=== PATIENT | female | born 1965 | race Caucasian/White ===

== ENCOUNTER 2017-11-12 07:00 | Day surgery (SDC) | payer OTHER ==
[2017-11-04 17:41] VITALS: BMI 29.0
[2017-11-12] MEDS ORDERED: HALOPERIDOL LACTATE 5 MG/ML ONE (07:46)
[2017-11-12] MEDS ORDERED: LIDOCAINE HCL 1%, 10 MG/ML (20ML VIAL) ONE ×2 (07:46→08:31)
[2017-11-12] MEDS ORDERED: EPINEPHrine/PF 1 MG/1 ML (1:1,000) AMPULE ONE ×3 (07:47→08:31)
[2017-11-12] MEDS ORDERED: MIDAZOLAM HCL 2 MG/2 ML SINGLE DOSE VIAL ONE (07:47)
[2017-11-12] MEDS ORDERED: SCOPOLAMINE HYDROBROMIDE 1 PATCH PATCH.TD72 ONE (07:47)
[2017-11-12] MEDS ORDERED: PROPOFOL 20 ML ONE ×9 (07:58→09:39)
[2017-11-12] MEDS ORDERED: fentaNYL CITRATE 250 MCG/5 ML VIAL ONE (07:58)
[2017-11-12] MEDS ORDERED: SUCCINYLCHOLINE CHLORIDE 200 MG/10 ML VIAL ONE (07:58)
[2017-11-12] MEDS ORDERED: FAMOTIDINE 20 MG/50 ML IVPB 20 MG/50 ML MG IVPB ONE (08:02)
[2017-11-12] MEDS ORDERED: ceFAZolin SODIUM 1 GM VIAL ONE (08:52)
[2017-11-12] MEDS ORDERED: DEXAMETHASONE SOD PHOSPHATE 4 MG/1 ML VIAL ONE (08:52)
[2017-11-12] MEDS ORDERED: ONDANSETRON 4 MG/2 ML VIAL ONE (08:52)
[2017-11-12] MEDS ORDERED: GUM MASTIC/STORAX/MSAL/ALCOHOL 1 DRP DROPSBTL MC ONE (09:51)
[2017-11-12] MEDS ORDERED: BACITRACIN 15 GM TUBE TOPICAL OINTMENT ONE (10:41)
[2017-11-12] MEDS ORDERED: PROMETHAZINE HCL 25 MG/1 ML VIAL IVPB PRN (10:59)
[2017-11-12] MEDS ORDERED: ONDANSETRON 4 MG/2 ML VIAL IVPUSH PRN (10:59)
[2017-11-12] MEDS ORDERED: oxyCODONE HCL 5 MG TABLET PO PRN ×2 (10:59)
[2017-11-12] MEDS ORDERED: oxyCODONE HCL 5 MG TABLET ONE (12:52)
[2017-11-12 13:52] VITALS: TEMP 98
[2017-11-12 14:01] VITALS: BP 132/84; PULSE 72
--- NOTE | 2017-11-13 13:39 | OP ---
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 PROCEDURES PERFORMED: Bilateral revision of reconstructed breasts, bilateral contouring of breast shape with subcutaneous fat grafting and left nipple reconstruction, bilateral capsulectomies and bilateral implant exchange. DRAINS: None. COMPLICATIONS: None. DESCRIPTION OF PROCEDURE: Patient was brought to the operating room, placed supine on the operating table. After establishing general endotracheal anesthesia, patient's abdomen and chest were prepped with topical chlorhexidine solution and draped with sterile drapes. This completed, an appropriate timeout was performed, identifying the patient and the nature of the procedure, allowing all operative participants to ask questions and to raise concerns as indicated. Once this was completed, a sterile surgical marking pen was used to refresh the preoperative outlines which once made, were measured for symmetry. A number 10 blade was used to incise along the inframammary folds, first on the left and then the right side, respectively, to excise the excess redundant skin at the medial most aspect of each inframammary fold for improved contouring. Once these revision incisions were made, the tissue was passed off the table as specimens marked "mastectomy scars". This completed, dissection with the Bovie cautery proceeded until the capsule was identified on both sides and then first on the right side, the intact implant was removed, as was the intact implant on the left. The difference in volumes was 800 mL and 700 mL right to left, respectively. Once this was completed, both pockets were washed out with sterile antibiotic irrigation. Using a lighted retractor, the capsulectomy was performed on both sides along the perimeter, excising both the capsule as well as previously placed dermal matrix which was folded on itself and redundant. Once the capsulectomy was completed, a temporary sizer was used to shape each pocket and a 50-mL difference was noted. Given this, two separate volume implants were chosen with Natrelle INSPIRA Soft Touch silicone gel implants used, on the left side with a 750-mL implant with a reference number of SSX-750 and on the right side a 700-mL implant with a reference number of SSX-700. Once this was completed, the layered closure was performed on both sides concomitantly with interrupted 2-0 Vicryl for the deep parenchymal layer, followed by interrupted 3-0 Monocryl for the deep dermal, and lastly, a running 4-0 Monocryl subcuticular suture was used. A C-V outline was drawn on the left nipple-areolar complex and incised with a number 15 blade. A 2- x 4-cm AlloDerm sheet, having been soaked, was then trimmed and folded on itself to make a prominent nipple point. The C-V outline was wrapped around this matrix and tacked to the deep parenchyma with interrupted 4-0 Monocryl suture. Then, 5-0 fast absorbing plain gut was used to close the cuticular layer around the nipple-areolar reconstruction. Once this was completed, two small access incisions were made on both flank areas with the [facility] fat harvesting system utilized with 500 mL of lipoaspirate removed from the flank, anterior abdominal and epigastric areas sequentially. These access incisions were then closed with 5-0 fast absorbing plain gut sutures. The fat was allowed to settle and separate and was transferred into 10-mL syringes. Using microdroplet injection in the superior pole of both sides, as well as the lateral anterior axillary line on the right breast, 120 mL were injected into the left breast and 100 mL into the right breast. The access contouring incisions were closed with 5-0 fast absorbing plain gut suture. Mastisol and Steri-Strips were then applied to the skin incisions that had been closed. dressings, ABD pads, and a surgical bra were then placed. Patient transferred to the postanesthesia care unit in stable condition. CANELO POTTS M.D. [id number]
--- NOTE | 2017-11-14 11:49 | PATH ---
Surgical Pathology Report Patient Name: MENA MORENO [facility]. Rec. #: [id number] /Age/Gender: 1965 (Age: 52) / F Account: [id number] Location[facility] Taken: 11/12/2017 Received: 11/12/2017 Reported: 11/14/2017 Physicians: Kevon Potts Specimen(s) Received A: LEFT BREAST TISSUE B: LEFT BREAST IMPLANT C: RIGHT BREAST IMPLANT D: RIGHT BREAST MASTECTOMY SCAR E: LEFT BREAST MASTECTOMY SCAR Clinical History None given Final Diagnosis A. SOFT TISSUE, LEFT BREAST, EXCISION: FIBROUS TISSUE CONSISTENT WITH BREAST IMPLANT CAPSULE. B. BATTERY STARTER, LEFT BREAST, REMOVAL: BREAST IMPLANT (GROSS ONLY). C. BATTERY STARTER, RIGHT BREAST, REMOVAL: BREAST IMPLANT (GROSS ONLY). D. SKIN, RIGHT BREAST, EXCISION: SKIN WITH DERMAL SCAR. E. SKIN, LEFT BREAST, EXCISION: SKIN WITH DERMAL SCAR. Electronically Signed Allen Rivas M.D. Gross Description A. Received in formalin labeled "left breast capsule," is an 11.5 x 7.0 x 0.2 cm portion of garner fibrous tissue, consistent with a breast capsule. No discrete masses are identified. Processing Assistant sections are submitted in one cassette. B. Received fresh labeled "left breast implant," is a 13 cm in diameter x 6.5 cm in depth clear, rubbery, intact breast implant. No soft tissue is present. No sections are submitted, gross only. C. Received fresh labeled "right breast implant," is a 13 cm in diameter x 6.5 cm in depth clear, rubbery, intact breast implant. No soft tissue is present. No sections are submitted, gross only. D. Received in formalin labeled "right breast mastectomy scar," is a 6.5 x 0.7 cm garner, elliptical, unoriented portion of skin excised to depth of 0.5 cm. The epidermal surface displays a possible well healed scar. No discrete masses are identified. Processing Assistant sections are submitted in one cassette. E. Received in formalin labeled "left breast mastectomy scar," is a 7.5 x 0.6 cm garner, elliptical, unoriented portion of skin excised to depth of 0.7 cm. The epidermal surface displays a well healed scar. No discrete masses are identified. Processing Assistant sections are submitted in one cassette. DL/11/13/2017 [facility]/13/2017
== END 2017-11-12 13:50 | disposition home or self-care (01) ==
LOC: FASU 07:00
PROVIDERS: ATTEND Surgery Plastic and Reconstructive Surgery
PROC: 0HRV0JZ Replacement of Bilateral Breast with Synthetic Substitute, Open Approach (ICD-10-PCS; 2017-11-12)
PROC: 0HRV07Z Replacement of Bilateral Breast with Autologous Tissue Substitute, Open Approach (ICD-10-PCS; 2017-11-12)
PROC: 0HUX07Z Supplement Left Nipple with Autologous Tissue Substitute, Open Approach (ICD-10-PCS; 2017-11-12)
PROC: 0HPU0JZ Removal of Synthetic Substitute from Left Breast, Open Approach (ICD-10-PCS; principal; 2017-11-12 08:26)
PROC: 0HPT0JZ Removal of Synthetic Substitute from Right Breast, Open Approach (ICD-10-PCS; 2017-11-12 08:26)
DX: M95.4 Acquired deformity of chest and rib (principal); Z90.13 Acquired absence of bilateral breasts and nipples; T85.44XA Capsular contracture of breast implant, initial encounter; Y82.8 Other medical devices associated with adverse incidents; Y92.9 Unspecified place or not applicable; N64.89 Other specified disorders of breast; N65.1 Disproportion of reconstructed breast
CPT/HCPCS: 88300-TC; 88304-TC; 94760

== ENCOUNTER 2018-02-19 11:55 | Day surgery (SDC) | payer OTHER ==
[2018-02-13 15:26] VITALS: BMI 29.7
[2018-02-19] MEDS ORDERED: GENTAMICIN SO4 80 MG/2 ML VIAL ONE (13:50)
[2018-02-19] MEDS ORDERED: ceFAZolin SODIUM 1 GM VIAL ONE ×2 (13:50→16:02)
[2018-02-19] MEDS ORDERED: BACITRACIN 15 GM TUBE TOPICAL OINTMENT ONE (14:16)
[2018-02-19] MEDS ORDERED: fentaNYL CITRATE 250 MCG/5 ML VIAL ONE (14:35)
[2018-02-19] MEDS ORDERED: PROPOFOL 20 ML ONE ×4 (14:35→16:02)
[2018-02-19] MEDS ORDERED: MIDAZOLAM HCL 2 MG/2 ML SINGLE DOSE VIAL ONE (14:36)
[2018-02-19] MEDS ORDERED: LIDOCAINE 1%/EPI 1:100000 (20 ML MULTI DOSE VIAL) ONE (15:09)
[2018-02-19] MEDS ORDERED: PROMETHAZINE HCL 25 MG/1 ML VIAL ONE (15:18)
[2018-02-19] MEDS ORDERED: DEXAMETHASONE SOD PHOSPHATE 4 MG/1 ML VIAL ONE (15:25)
[2018-02-19] MEDS ORDERED: ONDANSETRON 4 MG/2 ML VIAL ONE (15:25)
[2018-02-19] MEDS ORDERED: oxyCODONE HCL 5 MG TABLET PO PRN ×2 (15:30)
[2018-02-19] MEDS ORDERED: ONDANSETRON 4 MG/2 ML VIAL IVPUSH PRN (15:30)
[2018-02-19] MEDS ORDERED: LACTATED RINGERS SOLUTION 1,000 ML IV SCH (15:30)
[2018-02-19] MEDS ORDERED: GUM MASTIC/STORAX/MSAL/ALCOHOL 1 DRP DROPSBTL MC ONE (16:03)
[2018-02-19] MEDS ORDERED: BUPIVACAINE HCL/PF 2.5 MG/ML - 30 ML VIAL IJ ONE (16:03)
[2018-02-19] MEDS ORDERED: ACETAMINOPHEN 1000 MG/100 ML VIAL (NON FORMULARY) IVPB ONE ×2 (16:35→16:45)
[2018-02-19] MEDS ORDERED: ACETAMINOPHEN INJECTION 100 ML IVPB ONE (16:41)
[2018-02-19 16:47] VITALS: TEMP 98.1
[2018-02-19 17:24] VITALS: PULSE 66
[2018-02-19 18:36] VITALS: BP 122/74
--- NOTE | 2018-02-20 11:13 | OP ---
DATE OF OPERATION: 11/02/2015 ATTENDING SURGEON: Gail Potts MD HEAD IRRIGATOR: Malik Sebastian PA-C PREOPERATIVE DIAGNOSIS: Acquired bilateral chest wall deformities, status post mastectomy and reconstruction with implant and chest wall asymmetry with capsular contracture. POSTOPERATIVE DIAGNOSIS: Acquired bilateral chest wall deformities, status post mastectomy and reconstruction with implant and chest wall asymmetry with capsular contracture. PROCEDURE PERFORMED: 1. Right nipple areolar complex reconstruction with AlloDerm matrix and advancement flap. 2. Right implant exchange. 3. Open right capsulectomy. DRAINS: None. COMPLICATIONS: None. ESTIMATED BLOOD LOSS: 30 mL. FLUIDS ADMINISTERED: Crystalloid solution, 1.2 L. DESCRIPTION OF PROCEDURE: The patient was brought to the operating room, placed supine on the operating table. After induction of laryngeal mask anesthesia patients chest was prepped with topical chlorhexidine solution and draped with sterile drapes. Once this was completed, an appropriate time-out was performed identifying the patient, the nature of the procedure, and allowing all operative participants to ask questions and/or raise concerns as indicated. With this completed, the inframammary fold incision was made with a No. 10 blade sharply dividing skin and subcutaneous tissues and passing this off the table as a specimen. Dissection proceeded down until the capsule was identified. This was opened with a perimeter capsulectomy performed with a PEAK PlasmaBlade and hemostasis was assured with the Bovie cautery. Once this was assured, the previously placed implant was removed, and the wound was copiously irrigated with sterile saline. A new Natrelle Inspira Soft Touch breast implant with a reference number of SSX-800, this was an 800 mL smooth, round, high profile implant, and this was placed into the right pocket using a Castrejon funnel for a no-touch technique. With this completed, 10 mL of 0. Marcaine 25% was injected along the inframammary fold and anterior axillary line for a wound and chest wall nerve block. The nipple areolar complex was then outlined with a sterile surgical marking pen and incised with a No. 15 blade. An AlloDerm roll measuring 2 x 4 cm was then fashioned, sewn with interrupted 2-0 Mersilene suture and inset under the nipple areolar complex reconstruction with an interrupted [id number] 3-0 PDS suture. The remainder of the nipple reconstruction was then closed in layers with interrupted 3-0 Monocryl for the deep dermal layer followed by a running 5-0 Monocryl subcuticular suture. Mastisol and Steri-Strips were applied. A soft silicone gel cap was placed over the nipple reconstruction, secured within Steri-Strips. Lastly, Bacitracin ointment was placed over the nipple reconstruction. Once this was completed, the patient was successfully extubated. Fluff gauze dressings with ABD pads and a surgical bra were then placed. Patient was next transferred to the post-anesthesia care unit in stable condition. CANELO POTTS M.D. [id number]
--- NOTE | 2018-02-24 15:59 | PATH ---
Surgical Pathology Report Patient Name: MENA MORENO Med. Rec. #: [id number] /Age/Gender: 1965 (Age: 52) / F Account: [id number] Location[facility] Taken: 02/19/2018 Received: 02/19/2018 Reported: 02/24/2018 Physicians: Kevon Potts Specimen(s) Received A: RIGHT BREAST MASTECTOMY SCAR B: RIGHT BREAST IMPLANT Clinical History History of breast cancer Final Diagnosis A. SCAR, RIGHT BREAST MASTECTOMY, REVISION: SKIN WITH SCAR. B. IMPLANT, RIGHT BREAST, REMOVAL: IMPLANT, DESCRIBED (GROSS EXAMINATION ONLY). Electronically Signed Marlys Su M.D. Gross Description A. Received in formalin labeled "right breast mastectomy scar," is a 5.5 x 0.5 cm garner, elliptical, unoriented portion of skin excised to a depth of 0.2 cm. The epidermal surface displays a possible well-healed scar. Contract Officer sections are submitted in one cassette. B. Received fresh labeled "right breast implant," is a 14 cm in diameter x 5 cm in depth clear, rubbery, intact breast implant. No soft tissue is present. No sections are submitted, gross only. 02/20/2018 [place]02/20/2018
== END 2018-02-19 18:00 | disposition home or self-care (01) ==
LOC: FASU 11:55
PROVIDERS: ATTEND Surgery Plastic and Reconstructive Surgery
PROC: 0HPT0JZ Removal of Synthetic Substitute from Right Breast, Open Approach (ICD-10-PCS; 2018-02-19)
PROC: 0HRT0JZ Replacement of Right Breast with Synthetic Substitute, Open Approach (ICD-10-PCS; 2018-02-19)
PROC: 0HQW0ZZ Repair Right Nipple, Open Approach (ICD-10-PCS; principal; 2018-02-19 15:41)
PROC: 0HUT0KZ Supplement Right Breast with Nonautologous Tissue Substitute, Open Approach (ICD-10-PCS; 2018-02-19 15:41)
DX: M95.4 Acquired deformity of chest and rib (principal); Z90.13 Acquired absence of bilateral breasts and nipples; N65.1 Disproportion of reconstructed breast; T85.44XA Capsular contracture of breast implant, initial encounter; Y82.8 Other medical devices associated with adverse incidents; Y92.9 Unspecified place or not applicable
CPT/HCPCS: 88300-TC; 88304-TC; 94760; J0131